=== PATIENT | male | born 1995 | race Caucasian/White ===

== ENCOUNTER 2021-03-19 17:41 | Emergency (ER) | payer OTHER ==
[~2021-03-19] VITALS: Ht 182.9 cm; Wt 80.5 kg
[2021-03-19 18:46] VITALS: BP 144/71
[2021-03-19] MEDS ORDERED: ERYT1OIN6 OS (19:23)
--- NOTE | 2021-03-19 19:24 | PHYS DOC ---
Past History Additional Past Medical Histor: ADHD Past Surgical History: Other Additional Past Surgical Histo: L wrist, ulna fx, tricep surgery Alcohol Use: None Adult General Chief Complaint Chief Complaint: EYE PROBLEMS HPI HPI Patient is a otherwise healthy 26-year-old male, up-to-date on vaccinations who presents with left eye irritation. States that earlier this morning he was outside and the wind was blowing any think some dust got in his eye. States that since then he has had some clear watery discharge and slight irritation but no real pain. Denies any changes in vision. States it feels like he is got some sand in his eye when he blinks. Review of Systems Review of Systems Review of systems otherwise unremarkable except noted in HPI Physical Exam Physical Exam Constitutional: Well developed, well nourished, no acute distress, non-toxic appearance. [] HENT: Normocephalic, atraumatic, bilateral external ears normal, oropharynx moist, no oral exudates, nose normal. [] Eyes: PERRLA, EOMI, conjunctiva with slight redness and lateral left corner of left eye, mild watery discharge. 20/20 vision bilaterally [] Extremities: No tenderness, no cyanosis, no clubbing, ROM intact, no edema. [] Neurologic: Alert and oriented X 3, no focal deficits noted. [] Psychologic: Affect normal, judgement normal, mood normal. [] Current Patient Data Vital Signs Vital Signs Date Time Temp Pulse Resp B/P (MAP) Pulse Ox O2 Delivery O2 Flow Rate FiO2 03/19/21 18:46 98.2 84 16 144/71 (95) 100 Room Air EKG EKG [] Radiology/Procedures Radiology/Procedures [] Heart Score C/O Chest Pain: No Risk Factors: Risk Factors: DM, Current or recent (<one month) smoker, HTN, HLP, family history of CAD, obesity. Risk Scores: Risk Factors: DM, Current or recent (<one month) smoker, HTN, HLP, family history of CAD, obesity. Course & Med Decision Making Course & Med Decision Making Patient is a 26-year-old male who presents with left eye irritation Vital signs not concerning. Physical exam noted above. Given Tylenol and ibuprofen. On exam patient has any small corneal abrasion. Eye exam otherwise normal. Started on erythromycin eyedrops in the ED. Discussed management at home including eyedrops and coverings. Discussed all findings with patient. Advised to follow-up with primary care on Saturday as well as the doping supervisor to set up an appointment Gave return precautions to the ED. Patient grateful, verbalized understanding and agree with plan of discharge. [] Dragon Disclaimer Dragon Disclaimer This electronic medical record was generated, in whole or in part, using a voice recognition dictation system. Departure Departure: Impression: Primary Impression: Corneal abrasion Disposition: HOME / SELF CARE / HOMELESS Condition: GOOD Referrals: PCP,NO (PCP) RIN BLUM MD Patient Instructions: Eye - Corneal Abrasion Additional Instructions: Fever coming into the emergency department tonight allowing us to take care of you. Please read the attached information carefully to go back over some of the things we discussed. Please use your antibiotic eye ointment as prescribed. You can also use lubricating eyedrops as well as we discussed. You can also use Tylenol ibuprofen as needed. Please keep your eye covered at night while sleeping and in the day when you can. Please follow-up in the morning with your primary care physician. Please also call the doping supervisor first thing in the morning. There is a local chief clerk as well but she can call at [phone] unless she have your own doping supervisor. Scripts Erythromycin Base (Erythromycin) 1 Gm Oint...g. 1 CM OS QID for corneal abrasion for 5 Days, #10 MISC ~1 cm ribbon into affected eye qid for 5 days Prov: SHIRLEY PAVON MD 03/19/21 SHIRLEY PAVON MD Mar 19, 2021 19:24
[2021-03-19] MEDS ORDERED: ACETAMINOPHEN 500 MG TABLET PO ONE (19:45)
[2021-03-19] MEDS ORDERED: ERYTHROMYCIN 0.5% OPHTH OINTMENT 1GM TUBE. OS ONE (19:45)
[2021-03-19] MEDS ORDERED: IBUPROFEN 600 MG TABLET. PO ONE (19:45)
== END 2021-03-19 19:37 | disposition home or self-care (01) ==
LOC: ER 17:41
DX: S05.02XA Injury of conjunctiva and corneal abrasion without foreign body, left eye, initial encounter (principal); X58.XXXA Exposure to other specified factors, initial encounter; Y93.89 Activity, other specified; Y92.89 Other specified places as the place of occurrence of the external cause; Y99.8 Other external cause status
CPT/HCPCS: 99283